=== PATIENT | female | born 1945 | race Caucasian/White ===

== ENCOUNTER 2018-11-15 12:02 | Inpatient (IN) | payer MEDICARE, BC ==
--- NOTE | 2018-11-02 15:12 | HP ---
PREOPERATIVE HISTORY AND PHYSICAL EXAMINATION: DATE OF SURGERY SCHEDULED: 11/15/18 DATE OF OFFICE VISIT: 11/02/18 ATTENDING PHYSICIAN: Dr. Asia Thakkar.* (DICTATED BY MAYLIN HODGSON) CHIEF COMPLAINT: Right knee pain. HISTORY OF PRESENT ILLNESS: Ms. Rodriguez is a 73-year-old female with right knee pain for over 6 months. She can no longer walk a block without severe pain. She has difficulty climbing stairs or with prolonged standing. She has tried antiinflammatories, steroid injections, physical therapy, ice, and compression in the past without significant relief of her symptoms. She elects to proceed with right total knee arthroplasty. PAST MEDICAL HISTORY: Significant for: 1. Hypertension. 2. Type 2 diabetes. PAST SURGICAL HISTORY: She has had a left breast biopsy which was found to be benign. CURRENT MEDICATIONS: 1. Metformin 500 mg 2 tabs p.o. b.i.d. 2. Januvia 50 mg p.o. daily. 3. Metoprolol 50 mg p.o. daily. 4. Losartan 100/12.5 mg p.o. daily. 5. Vitamin D3 2000 IU daily. 6. Multivitamin daily. ALLERGIES: No known drug allergies. She is unsure whether she is allergic to nickel metal. FAMILY HISTORY: Her mother and maternal grandparents all with history of diabetes. Father with a history of heart disease and hypertension. SOCIAL HISTORY: The patient is a retired payroll benefits administrator. She lives alone. She denies use of tobacco, alcohol, or recreational drug use. REVIEW OF SYSTEMS: The patient denies recent loss of consciousness, lightheadedness, dizziness, shortness of breath, chest pain, palpitations, gastrointestinal or genitourinary complaints. Negative for DVT or pulmonary embolism. PHYSICAL EXAMINATION GENERAL: She is a well-developed, well-nourished 73-year-old female, in no acute distress. Pleasant and cooperative. VITAL SIGNS: 65.25 inches tall, weight 167. Pulse 70, BP 128/66, temperature 97.4, respirations 14. HEENT: PERRLA. EOMI. LUNGS: Clear to auscultation without wheeze. HEART: Regular rate and rhythm. No murmur auscultated. ABDOMEN: Soft, nontender, nondistended. Normoactive bowel sounds x4 quadrants. MUSCULOSKELETAL: The right knee reveals no open lesions or excoriations on the skin. Roughly 10 degrees to 120 degrees of motion with palpable crepitus. There is valgus deformity noted. No gross instability to varus or valgus stress testing. She has full sensation distally, full circulation. Her calf is nontender and soft. She has active dorsiflexion of the right ankle. DIAGNOSTIC STUDIES/LAB DATA: Plain films of the right knee shows severe degenerative changes in both the lateral patellofemoral compartments. IMPRESSION: Advanced osteoarthritis of the right knee. PLAN: The patient has elected to proceed with right total knee arthroplasty which is scheduled with Dr. Thakkar, 11/15/18. She is scheduled to see her primary care provider tomorrow, 11/03/18 for preoperative medical clearance. She is scheduled to report to the hospital today for PAT testing, lab work, etc. She will follow up in the office in roughly 10 to 14 days postoperatively. Risks and benefits of the surgery are fully discussed by Dr. Thakkar at the office visit today and she elects to proceed. MAYLIN HODGSON [id number]/CPS #: [id number] ROHAN
[~2018-11-15 12:02] MED LIST: Buffered Lidocaine 1% SYRIN* 1 ML/SYRINGE INTRADERM ONE; Lactated Ringers 1000 ML Bag* 1,000 ML IV SCH; Tranexamic Acid 1,000 MG in NS 0.9% 50 ML* (outpatient use) IV SCH
--- OUTSIDE RECORDS SUMMARY | 2018-11-15 12:05 | XMS REPORT | Summary of Care ---
:1945 Author Organization [facility] Address [address] [place] [address] Care Team Providers Name Role Phone Nav Bradford MD Primary Care Provider Reason for Referral Diagnostic Testing (Routine) Status Reason Specialty Diagnoses / Procedures Referred By Contact Referred To Contact Closed Cardiology Diagnoses [facility]op examination [facility]TE [address] [facility] Cardiology [address] [place] [address] Reason for Visit Reason Comments Pre-Op Exam 11-15-[address] Dr Thakkar Encounter Details Date Type Department Care Team Description 11/03/2018 Office Visit [place] Internal Nav Bradford MD Preop examination (Primary Dx); Medicine [address] [facility] Essential hypertension; [address] [place] [address] Type 2 diabetes mellitus without complication, without long-term current use of insulin ([facility]) [place] [address] [phone] Allergies Active Allergy Reactions Severity Noted Date Comments Davon Inhibitors Respiratory Reaction 07/06/2008 Statins Other 09/04/2016 Refuse use documented as of this encounter (statuses as of 11/10/2018) Medications Medication Sig Dispensed Refills Start Date End Date Status Blood Glucose 1 Each by In 1 Each 0 09/05/2014 Active Monitoring Suppl Vitro route (FREESTYLE LITE) TWICE DAILY. Does not apply OV - 08/23/14 Device Dx 250.00 Lancets Does not 1 Each by Does 100 Each 3 12/30/2015 Active apply not apply MiscIndications: route DAILY. Type 2 diabetes Dx E11.9 BILL mellitus without 12/31/15 complication, without long-term current use of insulin (HCC) Calcium Take by mouth 0 Active Carb-Cholecalcife TWICE DAILY. rol (CALCIUM 600/VITAMIN D3) 600-800 MG-UNIT Oral Tab Glucose Blood In 1 Strip by In 100 Strip 3 01/11/2017 Active Vitro Vitro route StripIndications: TWICE DAILY. Type 2 diabetes Dx E11.9 mellitus without Freestyle Lite complication, BILL 12/31/15 without long-term current use of insulin (HCC) metFORMIN Take 2 Tabs by 360 Tab 3 11/25/2017 Active (GLUCOPHAGE) 500 mouth TWICE MG Oral Tab DAILY. sitagliptin Take 1 Tab by 90 Tab 3 03/24/2018 Active (JANUVIA) 100 MG mouth DAILY. Oral Tab Losartan Take 1 Tab by 90 Tab 1 10/03/2018 Active Potassium-HCTZ mouth DAILY. 100-12.5 MG Oral TabIndications: Essential hypertension metoprolol Take 1 Tab by 90 Tab 1 05/12/2018 Discontinued (LOPRESSOR) 50 MG mouth DAILY. 9 (Reorder) Oral TabIndications: Essential hypertension documented as of this encounter (statuses as of 11/10/2018) Active Problems Problem Noted Date Atypical ductal hyperplasia of breast 10/03/2018 Overview: 09/30 -Intraductal papilloma with atypical ductal hyperplasia Lipid disorder 01/11/2017 Type 2 diabetes mellitus without complication 12/30/2015 BMI 30.0-30.9,adult 04/27/2012 Overview: This patient's BMI has been calculated and is above average, and BMI management plan is completed. General patient education discussion including: obesity-related excess mortality DM (diabetes mellitus) 04/04/2012 Overview: HgA1C 12.5 03/27 Vitamin D deficiency 04/24/2009 Essential hypertension 08/15/2007 Asthma 08/15/2007 arthritis 08/15/2007 allergies 08/15/2007 documented as of this encounter (statuses as of 11/10/2018) Immunizations Name Administration Dates Next Due Influenza (IM) Preservative Free 12/23/2017, 03/14/2014 Influenza Vaccine High Dose 01/19/2017, 12/30/2015, 01/10/2015 Influenza Vaccine Whole 02/03/2000 PNEUMOCOCCAL POLYSACCHARIDE VACCINE 05/07/2016 Pneumococcal Conjugate(13 Valent) 05/01/2015 TDAP Vaccine 04/24/2009 ZOSTER (SHINGRIX) VACCINE 10/11/2018 ZOSTER (ZOSTAVAX) VACCINE 02/18/2007 dT Vaccine 02/03/2000 documented as of this encounter Social History Tobacco Use Types Packs/Day Years Used Date Never Smoker Smokeless Tobacco: Never Used Alcohol Use Drinks/Week oz/Week Comments No Sex Assigned at Date Recorded Not on file Job Start Date Occupation Industry Not on file Not on file Not on file Travel History Travel Start Travel End No recent travel history available. documented as of this encounter Last Filed Vital Signs Vital Sign Reading Time Taken Comments Blood Pressure 134/67 11/03/2018 3:11 PM EDT Pulse 82 11/03/2018 3:11 PM EDT Temperature - - Respiratory Rate - - Oxygen Saturation 99% 11/03/2018 3:11 PM EDT Inhaled Oxygen Concentration - - Weight 76.7 kg (169 lb) 11/03/2018 3:11 PM EDT Height 163.8 cm (5' 4.5") 11/03/2018 3:11 PM EDT Body Mass Index 28.56 11/03/2018 3:11 PM EDT documented in this encounter Patient Instructions Patient InstructionsNva Bradford MD - 11/03/2018 3:00 PM EDTPlan Patient is a good candidate for planned surgery- no further testing or change in medicinal regimen necessary Hold metformin / januvia before surgery / losartan/ hydrochlorothiazide Take the metoprolol before surgery with a sip Unless your surgical team tells you otherwise - - documented in this encounter Progress Notes Nav Bradford MD - 11/03/2018 3:00 PM EDT NAME:Sharon Rodriguez 1945: 1945 ENC Date: 11/03/2018 CC: Chief Complaint Patient presents with Pre-Op Exam 11-15-[address] surgery [address] Dr Thakkar Sharon Rodriguez is a 73-y.o. female preop evualuation with Dr Thakkar - Has no history of cardiopulmonary disease except for longstanding HTN and diabetes - Patient does participate in water aerobics without symptoms - Diabetes has not been well controlled but patient is losing weight and watching her carbs in anticipation of surgery - She denies any shortness of breath / chest pressure / palpitations / faint / cough - No bleeding or clotting problems No history of obsructive sleep apnea - No history of anesthetic problems - Current Outpatient Medications Medication Sig Blood Glucose Monitoring Suppl (FREESTYLE LITE) Does not apply Device 1 Each by In Vitro route TWICE DAILY. OV - 08/23/14 Dx 250.00 Calcium Carb-Cholecalciferol (CALCIUM 600/VITAMIN D3) 600-800 MG-UNIT Oral Tab Take by mouthTWICE DAILY. Glucose Blood In Vitro Strip 1 Strip by In Vitro route TWICE DAILY. Dx E11.9 Freestyle Lite BILL 12/31/15 Lancets Does not apply Misc 1 Each by Does not apply route DAILY. Dx E11.9 BILL 12/31/15 Losartan Potassium-HCTZ 100-12.5 MG Oral Tab Take 1 Tab by mouth DAILY. metFORMIN (GLUCOPHAGE) 500 MG Oral Tab Take 2 Tabs by mouth TWICE DAILY. metoprolol (LOPRESSOR) 50 MG Oral Tab Take 1 Tab by mouth DAILY. sitagliptin (JANUVIA) 100 MG Oral Tab Take 1 Tab by mouth DAILY. No current facility-administered medications for this visit. Patient Active Problem List Diagnosis Date Noted Atypical ductal hyperplasia of breast 10/03/201809/30 -Intraductal papilloma with atypical ductal hyperplasia Lipid disorder 01/11/2017 Type 2 diabetes mellitus without complication (HCC) 12/30/2015 BMI 30.0-30.9,adult 04/27/2012 This patient's BMI has been calculated and is above average, and BMI management plan is completed. General patient education discussion including: obesity-related excess mortality DM (diabetes mellitus) (HCC) 04/04/2012 HgA1C 12.5 03/27 Vitamin D deficiency 04/24/2009 Essential hypertension 08/15/2007 Asthma 08/15/2007 arthritis 08/15/2007 allergies 08/15/2007 Family History Problem Relation Age of Onset Diabetes Mother No cardiopulmonary symptoms No upper or lower GI complaints No urinary tract symptoms. No bruising/ bleeding. No neurological complaints . No insomnia.+ . Social History Tobacco Use Smoking status: Never Smoker Smokeless tobacco: Never Used Substance Use Topics Alcohol use: No Drug use: No OBJECTIVE: BP 134/67 | Pulse 82 | Ht 5' 4.5" (1.638 m) | Wt 169 lb (76.7 kg) | SpO2 99 % | BMI 28.56 kg/m . Heent neg Neck no JVD, thyromegaly or bruit Lungs Clear CV rrr Abd soft, nontender, no organomegaly Ext no edema; no lesions; pulses intact Neuro: intellect intact ; motor including gait unremarkable A/P ICD-9-CM ICD-10-CM 1. Preop examination V72.84 Z01.818 2. Essential hypertension Good control, continue present treatment 401.9 I10 3. Type 2 diabetes mellitus without complication, without long-term current use of insulin (HCC)- Losing weight - fasting blood sugar are better this month than previous with weight loss 250.00 E11.9 Patient Instructions Plan Patient is a good candidate for planned surgery- no further testing or change in medicinal regimen necessary Hold metformin / januvia before surgery / losartan/ hydrochlorothiazide Take the metoprolol before surgery with a sip Unless your surgical team tells you otherwise - - Lab Results Component Value Date NA 138 09/26/2018 K 4.1 09/26/2018 CL 103 09/26/2018 CO2 26 09/26/2018 GLUCOSE 178 (H) 09/26/2018 BUN 18 (H) 09/26/2018 CREATININE 0.8 09/26/2018 CALCIUM 9.6 09/26/2018 TP 6.9 09/26/2018 ALBUMIN 3.9 09/26/2018 AST 55 (H) 09/26/2018 ALT 56 (H) 09/26/2018 ALK 65 09/26/2018 TBILI 0.5 09/26/2018 EGFR >60 09/26/2018 Lab Results Component Value Date GLYCO 8.5 (H) 09/26/2018 GLYCO 8.3 (H) 05/16/2018 GLYCO 7.5 (H) 01/10/2018 Lab Results Component Value Date CHOL 177 09/26/2018 TRIG 236 (H) 09/26/2018 HDL 36 (L) 09/26/2018 LDL 94 09/26/2018 LDLHDLRATIO 2.6 09/26/2018 CHOLHDLRATIO 4.9 09/26/2018 preop labs and EKG elsewhere - Not reviewed by me - Assume no problems there when making above assessment - AUTHOR: Nav Bradford MD 16:02 11/03/2018 documented in this encounter Plan of Treatment Date Type Specialty Care Team Description 12/19/2018 Office Visit General Surgery Toro Mi MD [address] [place] [address] [phone] 01/03/2019 Lab Internal Medicine 01/10/2019 Office Visit Internal Medicine Nav Bradford MD [address] [place] [address] [phone] Health Maintenance Due Date Last Done Comments MEDICARE ANNUAL WELLNESS 08/24/2015 08/23/2014, 07/21/2013 VISIT INFLUENZA VACCINE (#1) 2018 12/23/2017, 01/19/2017, 12/30/2015, Additional history exists ZOSTER IMMUNIZATION SERIES 12/06/2018 10/11/2018, 02/18/2007 (3 of 3) HEMOGLOBIN A1C 12/27/2018 09/26/2018, 05/16/2018, 01/10/2018, Additional history exists FALL RISK ASSESSMENT 01/17/2019 01/17/2018, 01/17/2018 FOOT EXAM 01/17/2019 01/17/2018, 01/17/2018, 01/17/2018, Additional history exists DEPRESSION SCREENING 05/28/2019 05/27/2018 LIPID DISORDER SCREENING 09/27/2019 09/26/2018, 05/16/2018, 01/10/2018, Additional history exists MAMMOGRAM (SCREENING) 09/27/2019 09/26/2018, 09/20/2017, 03/22/2017, Additional history exists Diabetic Eye Exam 02/23/2020 02/22/2018, 02/18/2017, 02/04/2016, Additional history exists OSTEOPOROSIS SCREENING 05/07/2026 05/07/2016, 05/08/2008 COLONOSCOPY SCREENING 11/09/2028 11/09/2018, 07/23/2008 PNEUMOCOCCAL 65+YRS Completed 05/07/2016, 05/01/2015 HPV IMMUNIZATION SERIES Aged Out No longer eligible based on patient's age to complete this topic MENINGOCOCCAL VACCINE IMM Aged Out No longer eligible based on patient's age to complete this topic documented as of this encounter Goals Goal Patient Goal Associated Recent Patient-Stated? Author Type Problems Progress Blood Pressure Blood Pressure 175/75 No Suzette, < 140/90 (11/09/2018 MD Nav 9:56 AM EDT) Note: This is an individualized treatment (blood pressure) goal for Sharon Rodriguez: Displayed above (on the left) is your goal for blood pressure control. Your most recent blood pressure is also shown above, on the right. You should try to achieve blood pressures that are lower than your goal listed above (on the left). Diabetes < 7.0 Diabetes DM (diabetes 8.5 (09/26/2018 7:42 No Nav Bradford MD mellitus) AM EDT) Note: Diabetes Care Plan According to current 2014 ADA guidelines the patient A1C goal is less than 7. The patient's last A1C was Lab Results Component Value Date GLYCOHEMOGLOBIN A1C 8.3* 04/29/2015 The patient is:above goal . As your provider, it is important that I advise you regarding: your current medications and help you with any challenges you may face taking your medications as directed (ex. instructions, cost, side effects, and interactions). Important lifestyle changes:exercise, diet and glucose monitoring your clinical goals and how you can achieve success:weight reduction, exercise plan, diet management and glucose monitoring medication management: adjusted medications as appropriate patient education/self-management tools provided: Yes To successfully manage my Diabetes I will: have lab work every six months if my previous A1c was 7 or less. If my results were greater than 7, I will have lab work every three months. My goal is to control my diabetes by keeping A1c below 7.0 take medications every day as prescribed by my healthcare provider and if unable to take them I will discuss with my provider. exercise/walk 30 minutes 3 day(s) per week. If I experience chest pain, chest tightness, or shortness of breath, I will seek medical attention immediately. check feet daily. If sores or irritation are noticed, will seek medical attention. follow a low carbohydrate and low fat diet. My goal is an LDL (bad cholesterol) number less than 100 when I have my routine lab work. check blood sugar as instructed and will call my healthcare provider if the results are consistently below 70 or above 300. I will monitor for symptoms of low blood sugar (feeling faint, dizzy, lig htheaded, jittery, sweaty, or hungry), if symptoms are noticed, I will eat or drink something (glucose tabs, orange juice, candy) to help raise sugar. record my blood sugar results (including dextrose sticks). [facility] is safe and secure way for you to do this in your medical record online. try to obtain an ideal body weight. My recent weight was Weight: 176 lb ( 79.833 kg). My weight loss goal for my next office visit is 5-10 lbs . to prevent kidney problems common to people with diabetes I will complete a yearly Microalbumin to check for protein in urine. I will talk with my healthcare provider about medications to prevent diabetic renal disease. to prevent diabetic retinopathy I will see an eye doctor yearly. A yearly dilated eye exam helps prevent blindness. if currently smoking, will discuss how to quit smoking with my healthcare provider and work towards quitting. Glycohemoglobin A1c < 7.0 Diabetes 8.5 (09/26/2018 7:42 AM No Nva Bradford MD EDT) Note: This is an individualized treatment (diabetes control, HgbA1C) goal for Sharon Josué Jennifer: Displayed above is your progress towards your HgbA1C goal. Your goal is shown above (on the left); your most recent HgbA1C is shown on the right. Note that lower numbers are better. Keep immunizations current Lifestyle No Nav Bradford MD Note: This is an individualized lifestyle goal for Sharon Rodriguez: Please be sure to keep up-to-date on recommended immunizations. For example, this would include a yearly influenza vaccine. Immunization status can be seen by looking at the Health Maintenance sections of your [employer], Plan of Care, and any After Visit Summaries. Weight loss vs. 18 mo Lifestyle 12 (11/09/2018 9:56 AM EDT) No Nav Bradford MD max (lbs) >= 10 Note: This is an individualized lifestyle goal for Sharon Josué Rodriguez: Your body mass index (BMI) is more than 30. You should lose weight. A reasonable starting goal is to lose 10 pounds. Displayed above is how many pounds you have lost thus far towards your 10 pound weight loss goal. Take all prescribed medications as directed Self-management Nav Betts MD Note: This is an individualized self-management goal for Sharon Rodriguez: Please take all prescribed medications as directed. 1. Do not skip doses. If you cannot afford your medications, talk with your doctor. 2. Use a pill reminder system such as a pill box if needed. Your pharmacist can help you with this. 3. Contact your Pharmacy 5 days before your medication runs out. If you cannot take your medications for any reasons, talk with your doctor. 4. Please bring all of your medication bottles and inhalers (or a list of all your medications/inhalers) with you to every visit. Potential barriers to meeting all of your care plan goals will continue to be addressed on an ongoing basis. documented as of this encounter Results ECHOCARDIOGRAM TTE (11/08/2018 12:27 PM EDT) ECHOCARDIOGRAM TTE ECHOCARDIOGRAPHY REPORT CARDIOLOGY DEPARTMENT Patient Name: JENNIFER Moses Status: Outpatient MR Number: [id number] Gender: Female : 1945 Location: [place] Age:73 year(s) Exam Date: 11/08/2018 12:27 PM Height: 64.49 inches Weight: 167 pounds Study Performed: 2D echocardiogram, M-Mode, Doppler , Color Doppler, ECHOCARDIOGRAM TTE, Echocardiogram , 3D echocardiogram. Ordering NAV BRADFORD MD Provider: Referring NAV BRADFORD MD Provider: [employer] Supervisor: Laya Carlson Room Number Interpreting Quintin Physician Rudolph WONG BSA: 1.82 m^2 Interpreting BMI: 28.23 kg/m^2 Fellow Nurse Technical Quality: Adequate visualization Heart Rate (HR): 67bpm Blood Pressure (BP): 134/67mmHg INDICATION FOR STUDY: Preop cardiac evaluation. FINAL IMPRESSION: Mild-moderate concentric LVH with normal left atrial size and Grade I diastolic dysfunction. Normal LV systolic function with no regional wall motion abnormalities; estimated LVEF 55%. Normal right heart size with normal RV systolic function. No structurally or hemodynamically significant valvular disease. No pericardial effusion. No prior study is available for comparison. OBSERVATIONS & FINDINGS: Using 2d (3d if applicable), M-mode, Colorflow, Continuous wave doppler and Pulse wave doppler interrogation Left Ventricle Left ventricular cavity size is normal. Left ventricular wall thickness is mild-moderately increased. No evidence of LVOT obstruction. Global systolic function is normal with estimated LVEF 55%. No regional wall motion abnormalities. Diastolic doppler profile is consistent with impaired LV relaxation (mild grade I diastolic dysfunction). Left Atrium The left atrium is normal in size. Indexed LA volume is 29 ml/m2. Mitral Valve Mitral valve has mildly thickened but flexible leaflets. There is no mitral stenosis or prolapse. There is trace mitral regurgitation. Aortic Valve Aortic valve appears tricuspid with mildly thickened and calcified but flexible leaflets. There is no aortic stenosis or regurgitation. Right Ventricle The right ventricle is normal in size with preserved contractility. Right Atrium The right atrium is normal in size. Tricuspid Valve Tricuspid valve appears structurally normal with flexible leaflets. There is trivial tricuspid regurgitation. Pulmonary arterial systolic pressure cannot be accurately estimated from this study. Pulmonic Valve The pulmonic valve appears structurally normal with flexible leaflets. There is trivial pulmonic regurgitation. Pericardium / Pleura There is no pericardial effusion. Miscellaneous Visualized portions of the aorta are within normal limits. Measurements & Calculations: M-Mode / 2D Measurements Value Normal Value Normal LVIDd: 4.4 cm 3.5-5.5 AO Root: 2.6 cm 2.0-3.7 LVIDs: 2.7 cm 3.0-4.0 LA Dimension: cm 1.9-4.0 IVSd: 1.3 cm 0.7-1.1 LVOT: 1.9 cm 1.5-2.5 LVPWD: 1.4 cm 0.7-1.1 RV Diastolic Dimension: 3.28 cm EF Estimated: 55 % 50-70% Doppler Measurements & Calculations: Mitral: Aortic: Area (PHT): 2.39 cm^2 LVOT VTI: 21.8 cm Peak E-Wave: 71 cm/s Peak Velocity: 138 cm/s Peak A-Wave: 126 cm/s Peak Gradient: 7.62 mmHg Peak Gradient: 2.02 mmHg P1/2t: 92 msec Area (continuity): 2.38 cm^2 Mean Velocity: 106 cm/s Mean Gradient: 5 mmHg AV VTI: 26 cm Deceleration Time: 313 msec E/A Ratio: 0.56 Pulmonic: Peak Velocity: 119 cm/s Peak Gradient: 5.[address] ED Velocity: 94.1 cm/s Mean Velocity: 88.4 cm/s Mean Gradient: 3 mmHg Estimated RAP: 3 mmHg LA Dimension: 3.15 cm RA dimension:3.72 cm LA/Aorta: 1.21 RA area:14.2 cm^2 LA Area: 19.3 cm^2 LA Volume/Index: 52.88 ml /29m^2 Diastolic Dimension: 4.4 cm Septum Diastolic: 1.3 cm PW Diastolic: 1.4 cm Bhagat dimension:3.28 cm EF Calculated: 50.74% CO: 4.14 l/min FS: 38.64 % LVOT LV Length: 7.15 cm Peak Velocity: 100 cm/s LVOT Diameter: 1.9 cm Peak Gradient: 3 mmHg Systolic Dimension: 2.7 cm LVOT Diameter: 1.9 cm Mean Velocity: 64.9 cm/s EF Estimated: 55% Mean Gradient: 2 mmHg CI: 2.27 l/min*m^2 LVOT VTI: 21.8 cm Aorta LV EDV/LV EDV Index: 136 ml/75 m^2 Aortic Root: 2.6 cm LV ESV/LV ESV Index: 67 ml/37 m^2 Ascending Aorta: 3.2 cm LVOT Diameter: 1.9 cm Pulmonary Vein: S Velocity: 57.3 cm/s D Velocity: 35.6 cm/s A Reversal Velocity: 28.2 cm/s A Reversal Duration: 130 msec Signature Ejection Fraction 55 % CARDIOLOGY DEPARTMENT AV AREA 2.38 cm2 CARDIOLOGY DEPARTMENT RVSP mmHg CARDIOLOGY DEPARTMENT LA Volume 52.88 ml CARDIOLOGY DEPARTMENT LVEDd 4.4 cm CARDIOLOGY DEPARTMENT LVESd 2.7 cm CARDIOLOGY DEPARTMENT IVSd 1.3 cm CARDIOLOGY DEPARTMENT LVPWd 1.4 cm CARDIOLOGY DEPARTMENT ESV 67 ml CARDIOLOGY DEPARTMENT EDV 136 ml CARDIOLOGY DEPARTMENT AV Mean Gradient 5 mmHg CARDIOLOGY DEPARTMENT Specimen Performing Organization Address City/State/Zipcode Phone Number CARDIOLOGY DEPARTMENT documented in this encounter Visit Diagnoses Diagnosis Preop examination - Primary Preoperative examination, unspecified Essential hypertension Unspecified essential hypertension Type 2 diabetes mellitus without complication, without long-term current use of insulin (HCC) documented in this encounter Insurance Payer Benefit Plan / Subscriber ID Effective Dates Phone Address Type Group MEDICARE MEDICARE PART A & xxxxxxxxxxx Effective for all Medicare B dates [facility] xxxxxxxxx Effective for all [place] dates documented as of this encounter
[2018-11-15] MEDS ORDERED: ceFAZolin 2 GM in NS PREMIX(*) 2 GM/100 ML BAG IVPB ONE (12:56)
[2018-11-15] MEDS ORDERED: Midazolam* 1 MG/ML 2 ML VIAL (2 MG) ONE ×2 (14:39→16:27)
[2018-11-15] MEDS ORDERED: fentaNYL* 50 MCG/ML 2 ML VIAL (100 MCG VIAL) ONE (14:39)
[2018-11-15] MEDS ORDERED: ROPIVACAINE 5 MG/ML 30 ML BTL (0.5%) ONE ×2 (15:03→15:56)
[2018-11-15] MEDS ORDERED: Propofol* 10 MG/ML 20 ML BTL ONE (16:51)
[2018-11-15] MEDS ORDERED: Morphine INJ* 2 MG/ML 1 ML SYRINGE (TWO MG - NEW SYRINGE VERSION) IV PRN (17:40)
[2018-11-15] MEDS ORDERED: diPHENhydraMINE PO* 25 MG PO PRN (17:40)
[2018-11-15] MEDS ORDERED: Ondansetron ODT TAB* 4 MG PO PRN (17:40)
[2018-11-15] MEDS ORDERED: Cyclobenzaprine TAB* 10 MG PO PRN (17:40)
[2018-11-15] MEDS ORDERED: Ondansetron INJ* 2 MG/ML VIAL IV PRN (17:40)
[2018-11-15] MEDS ORDERED: diPHENhydraMINE IV* 50 MG/ML 1 ml VIAL (BENADRYL) IV PRN (17:40)
[2018-11-15] MEDS ORDERED: Magnesium Hydroxide LIQ* 30 ML UDC PO PRN (17:40)
[2018-11-15] MEDS ORDERED: Dextrose 50% VIAL 50 ml IV PUSH PRN (17:45)
[2018-11-15] MEDS ORDERED: HYDROmorphone INJ1* 1 MG/ML SYRINGE IV PRN (19:20)
[2018-11-15] MEDS ORDERED: Acetaminophen TAB* 325 MG PO PRN (19:20)
[2018-11-15] MEDS ORDERED: Naloxone* 0.4 MG/ML 1 ML VIAL IV PRN (19:20)
[2018-11-15] MEDS ORDERED: HYDROcodone/ACETAMIN 5-325 MG* 1 TAB PO PRN (19:20)
--- NOTE | 2018-11-15 19:35 | OP ---
Operative Report - Blank - Operative Report Date of Operation: 11/15/18 Note: HALLEY MINER 1945 Date of Surgery: 11/15/18 Asia Thakkar MD Electric Refrigerator Preparer: Whitney CARLISLE did help throughout the procedure with preparation of the knee, wound retraction, manipulation of the knee, and wound closure. Anesthesiologist: Dr. Starr Anesthesia Type: Spinal Preoperative Diagnosis: Right severe degenerative osteoarthritis of the knee with valgus deformity Postoperative Diagnosis: As above Procedure Performed: Right Total Knee Arthroplasty Tourniquet time: 40 minutes Complications: None Specimen: Bone and cartilage from the right knee joint sent to pathology. Hardware Used: Cemented Tinajero and Nephew total knee hardware was used - For the femur a size 5 narrow right legion posterior stabilized femoral component, for the tibia a size 3 right marty II tibial baseplate, for the insert a size 3-4 9 mm posterior stabilized articular polyethylene insert, and for the patella a size 32 3-peg all poly patella. Brief History/Indication: HALLEY MINER was known in clinic and had a history of severe right knee pain and swelling. She failed conservative treatment with anti-inflammatories, pain pills, intra-articular injections and physical therapy. She elected to undergo right total knee arthroplasty due to continued pain and decreased quality of life. Radiographs showed severe end stage osteoarthritis of the knee with bone on bone contact. Informed consent was obtained from the patient. She understood the risks of surgery included but were not limited to: bleeding, infection, damage to nearby structures, intraoperative fracture, nerve palsy, failure of the hardware, early loosening, knee stiffness or loss of motion, anesthesia complications, stroke, heart attack , blood clot and . She wished to proceed. Intra-Operative Findings: Intraoperatively the patient was noted to have severe loss of cartilage in all 3 compartments of the knee. She had preoperative alignment of 12 degrees valgus. Description of the Procedure: HALLEY MINER was identified in the preanesthesia unit. Her right knee was marked as the correct operative side. Informed consent was signed and placed in the chart. The patient was taken to the operating room and placed under anesthesia without complication. A contreras catheter was placed. A tourniquet was placed on the right thigh. The right lower extremity was prepped and draped in the usual sterile fashion. Preoperative time-out was made to correctly identify the patient, side and site. Appropriate intraoperative antibiotics were given within one hour of incision. Tourniquet was inflated. A midline incision was made and carried sharply down to the extensor mechanism. A new 10 blade was used to make a standard medial parapatellar arthrotomy. The patella was subluxed laterally. Electrocautery was used to dissect soft tissue off the superomedial tibia to the midsagittal plane. The knee was flexed up. The anterior horn of the lateral meniscus and the ACL were sharply incised. A drill was used to enter the distal femur. The intramedullary distal femoral cutting guide was pinned on the distal femur. The oscillating saw was used to make the distal femoral cut. The external rotation guide was pinned on the distal femur and the distal femur was sized to a size 5. The size 5 multi-cutting jig was pinned on the distal femur. The oscillating saw was used to make the appropriate 4 chamfer cuts. Next the PCL was completely released. The extramedullary tibial cutting guide was pinned on the proximal tibia and the oscillating saw was used to make the proximal tibial cut perpendicular to the mechanical axis of the tibia. The bone was carefully removed. The knee was brought out into full extension. The spacer block was placed and had excellent fit with the knee in full extension. The medial and lateral ligaments were well balanced. The flexion and extension gaps were well balanced. The knee was flexed up. Lamina construction accountant was placed both medially and laterally. Any remaining meniscus was removed with electrocautery. Curved osteotome was used to remove any posterior osteophytes. The tibial tray and drop yareli were placed and confirmed a satisfactory tibial cut. The size 5 right narrow femoral trial was impacted onto the distal femur. This trial had excellent fit and stability. The box for the posterior stabilized implant was prepared using a box cut osteotome and a reamer. Next a tibial tray trial and 9 mm insert trial was placed. The knee was taken through a range of motion and had full extension to 130 degrees of flexion. Patellofemoral tracking was satisfactory. The patella was inverted and sized to a size 32. Three peg holes were drilled through the size 32 drill guide. The trial patella was placed and the knee was taken through a range of motion. There was satisfactory patellofemoral tracking. All trials were removed. The tibia was subluxed anteriorly and sized to a size 3. The proximal tibial was prepared with a size 3 keel punch. All bony cut surfaces were irrigated with sterile saline and dried. Final implants were cemented into place starting with the tibia, followed by the femur, and last the patella. A 9 mm insert trial was placed and the knee was brought into full extension. Tourniquet was turned down and the knee was copiously irrigated with sterile saline. Electrocautery was used to obtain meticulous hemostasis. Once the cement had fully cured, the insert trial was removed. Any excess cement was removed from around the hardware and capsule. Final insert chosen was a 9 mm posterior stabilized Marty II articular insert size 3-4. Stability of the insert was checked and noted to be stable. The extensor mechanism was closed using number 1 vicryls. The rest of the incision was closed in a layered fashion using 0 and 2-0 vicryls. The skin was closed using 3-0 nylon suture. Sterile xeroform, 4x4s and webril were used to cover the incision. Davon wrap and cold pack were used to cover the dressings. The patients anesthesia was reversed without difficulty. She was taken to the PACU in stable condition. Intended weight-bearing will be as tolerated.
[2018-11-15] MEDS ORDERED: Losartan TAB* 25 MG PO ONE (19:40)
[2018-11-15] MEDS ORDERED: Hydrochlorothiazide TAB* 25 MG PO ONE (19:40)
[2018-11-15] MEDS: oxyCODONE/Acetamin 5/325 MG* TAB PO PRN (20:52)
[2018-11-15] MEDS: Insulin LISPRO* 1 UNITS UNIT SUBCUT SCH (21:05)
[2018-11-15] MEDS: Magnesium Hydroxide LIQ* 30 ML UDC PO SCH (21:06)
[2018-11-15] MEDS: Docusate CAP* 100 MG PO SCH (21:08)
[2018-11-15] MEDS: Lactated Ringers 1000 ML Bag* 1,000 ML IV SCH (21:11)
[2018-11-15] MEDS: Acetaminophen TAB* 325 MG PO SCH (21:44)
[2018-11-15] MEDS: oxyCODONE TAB* 5 MG TAB PO PRN (22:32)
[2018-11-16] MEDS: oxyCODONE/Acetamin 5/325 MG* TAB PO PRN ×4 (00:52→18:05)
[2018-11-16] MEDS: ceFAZolin 1 GM ADVAN(*) 1 GM in NS 0.9% 50 ML* 50 ML IVPB SCH ×3 (00:55→18:02)
[2018-11-16 06:15] LABS: Hematocrit 34 % (35-47); Hemoglobin 11.7 g/dL (12.0-16.0); Mean Platelet Volume 8.2 fL (7.4-10.4); Platelet Count 127 10^3/uL (150-450)
[2018-11-16 06:33] LABS: BUN/Creatinine Ratio 17.6 (8-20); Calcium 8.3 mg/dL (8.6-10.3); EGFR African American 79.8 (>60); EGFR Non-African American 65.9 (>60); Potassium 3.6 mmol/L (3.5-5.0)
[2018-11-16] MEDS: Acetaminophen TAB* 325 MG PO SCH ×3 (07:07→21:42)
[2018-11-16] MEDS: Insulin LISPRO* 1 UNITS UNIT SUBCUT SCH ×4 (08:00→20:48)
[2018-11-16] MEDS: Docusate CAP* 100 MG PO SCH ×2 (08:03→20:39)
[2018-11-16] MEDS: Vitamin THERAPEUTIC TAB PO SCH (08:03)
[2018-11-16] MEDS: Apixaban* 2.5 MG TAB PO SCH ×2 (08:03→20:39)
[2018-11-16] MEDS: Metoprolol Tartrate TAB* 50 mg PO SCH (08:03)
[2018-11-16] MEDS: oxyCODONE TAB* 5 MG TAB PO PRN ×2 (08:03→12:16)
[2018-11-16] MEDS: Magnesium Hydroxide LIQ* 30 ML UDC PO SCH ×2 (08:05→21:42)
[2018-11-16] MEDS: Lactated Ringers 1000 ML Bag* 1,000 ML IV SCH (09:51)
[2018-11-16] MEDS: Losartan TAB* 25 MG PO SCH (09:59)
[2018-11-16] MEDS: Hydrochlorothiazide TAB* 25 MG PO SCH (09:59)
--- NOTE | 2018-11-16 10:57 | CONS ---
CONSULTATION REPORT: DATE OF CONSULT: 11/15/18 ATTENDING PHYSICIAN: Dr. Thakkar. CONSULTING PHYSICIAN: Dr. Mg. PRIMARY CARE PHYSICIAN: Dr. Pat Bradford. HEALTH CARE PROXY: No healthcare proxy. REASON FOR CONSULT: Diabetes and hypertension management. CODE STATUS: Full. SOURCE OF INFORMATION: History was taken from the patient. RELIABILITY: Good. CHIEF COMPLAINT: Chronic right knee pain. HISTORY OF PRESENT ILLNESS: This is a 73-year-old female with a past medical history significant for longstanding hypertension and type 2 diabetes, presented yesterday for an elective right total knee arthroplasty with Dr. Thakkar. The patient had been treated by Dr. Thakkar as an outpatient, but failed conservative treatment and opted for surgical intervention. She states that the knee pain is well controlled, 05/22, with no other postoperative complaints other than generalized itching. Hypertension has been managed adequately as an outpatient with no recent changes in medications. Hospital Medicine has been consulted for perioperative management. Blood pressure has been elevated 180s systolically this morning, but is asymptomatic. Denies headaches, vision changes, chest pain, or shortness of breath. The patient had an echocardiogram performed on 11/08/18 which revealed mild to moderate concentric left ventricular hypertrophy with normal left atrial size and grade 1 diastolic dysfunction and ejection fraction of 55%. PAST MEDICAL HISTORY: Significant for: 1. Hypertension. 2. Diabetes type 2. 3. Arthritis. PAST SURGICAL HISTORY: Left breast biopsy which is found to be benign. MEDICATIONS: 1. Sitagliptin 100 mg p.o. at bedtime. 2. Centrum multivitamin 1 tab p.o. q.a.m. 3. Metoprolol tartrate 50 mg p.o. q.a.m. 4. Metformin ER 1000 mg p.o. b.i.d. 5. Losartan hydrochlorothiazide 100/12.5 mg one tab p.o. q.a.m. 6. Vitamin D 2000 units p.o. q.a.m. 7. Calcium carbonate vitamin D 600/800 caplet p.o. b.i.d. ALLERGIES: NICKEL. FAMILY HISTORY: Mother and maternal grandparents have a history of diabetes. Father has a history of heart disease and hypertension. SOCIAL HISTORY: Normally able to ambulate without assistance. Retired data warehouse administrator. Denies drinking, smoking, or illicit drugs. REVIEW OF SYSTEMS: The 11-point system was negative except for generalized itching. PHYSICAL EXAM: Vital Signs: 99.3, temp 108, heart rate 16, respiration 95% oxygen on 2 L and 189/71 blood pressure. Constitutional: The patient is alert. She is awake, arousable, in no acute distress. Neuro: She is alert and oriented x4. Moves all extremities equally. No facial asymmetry. Extraocular motor movements intact. HEENT: [place], moist conjunctivae. Pupils are round, equal, and reactive. Nose and ears symmetrical. Lymphatics: No cervical or supraclavicular lymphadenopathy. Cardiac: S1, S2. Heart rate regular. No murmurs, rubs, or gallops appreciated. 1+ nonpitting edema to the right lower extremity. Positive pedal pulses. Respiratory: Lungs are clear to auscultation bilaterally. No accessory muscle use on 2 L of oxygen. Abdomen: Soft and nontender. Positive bowel sounds x4. Extremities: Able to dorsi and plantar flex. Positive pedal pulses, strong and equal. Skin: The right knee dressing is clean, dry, and intact. DIAGNOSTIC STUDIES/LAB DATA: The hemoglobin is 11.7, hematocrit is 34, platelet count 127. Sodium 136, potassium 3.6, chloride 100, glucose 205, calcium 8.3. Postoperative x-ray of the right knee revealed that the replacement is in satisfactory position. ASSESSMENT AND PLAN: This is a 73 year old female with a past medical history that is significant for HTN and DM type 2, admitted on 11/15/18 for an elective right total knee replacement. No acute complaints reported today. Denies headaches, chest pain, shortness of breath. 1. Right total knee arthroplasty - On postop day 1, management is per Ortho with regard to PT/OT, bowel and pain management. Monitor HH per routine. 2. Hypertension - Systolic blood pressure in the 180s this a.m, elevated since admission but is asymptomatic. There is no acute intervention required. The patient had metoprolol this morning. We will restart the hydrochlorothiazide and losartan per home dosage this morning and to continue daily. Also we will continue with metoprolol. 3. Diabetes type 2 - Since admission, blood glucoses have been in the low 100s with the highest being this morning of 218. We will continue to hold home Januvia and metformin, but we will continue sliding scale insulin. 4. DVT prophylaxis - Per ortho, the patient will continue Apixaban 2.5 mg p.o. b.i.d. and sequential compression devices. Disposition: Inpatient, possible discharge tomorrow. Thank you very much for this consult. [id number]/[facility] #: [id number] ROHAN
--- NOTE | 2018-11-16 11:41 | PN ---
Progress Note - Progress Note Date of Service: 11/16/18 SOAP: Subjective: []Pt seen and examined at bedside. Her right knee pain is well controlled. Denies CP, irregular heartbeats, SOB, dizziness, nausea. Her BP and HR were elevated overnight, home HTN meds given this morning and values have trend towards normal. Objective: []Gen: Appears well, NAD RLE: Right knee dressing CDI, thigh soft, DF/PF intact, DP2+, sensation intact to light touch distally Calves supple and nontender without erythema, edema or palpable cords Assessment: []POD 1 sp RTK Plan: []WBAT PT/OT eliquis 2.5 mg po bid x 30 days post op Plan for outpt PT upon DC, likely DC tomorrow Vital Signs Temp 98.1 F 11/16/18 11:29 Pulse 82 11/16/18 11:29 Resp 16 11/16/18 11:29 BP 146/52 11/16/18 11:29 Pulse Ox 93 11/16/18 11:29 Intake & Output 11/15/18 11/16/18 11/16/18 18:59 06:59 18:59 Intake Total 2680 1390 Output Total 1700 Balance 980 1390 Weight 167 lb Intake: IV Fluids 1800 920 LR 1800 920 IVPB 110 ABX - CEFAZOLIN 110 Oral 880 360 Output: Dang 1500 Estimated Blood Loss 200 Laboratory Last Values Hgb 11.7 g/dL (12.0-16.0) L 11/16/18 06:02 Hct 34 % (35-47) L 11/16/18 06:02 Plt Count 127 10^3/uL (150-450) L 11/16/18 06:02 MPV 8.2 fL (7.4-10.4) 11/16/18 06:02 Sodium 136 mmol/L (135-145) 11/16/18 06:02 Potassium 3.6 mmol/L (3.5-5.0) 11/16/18 06:02 Chloride 100 mmol/L (101-111) L 11/16/18 06:02 Carbon Dioxide 29 mmol/L (22-32) 11/16/18 06:02 Anion Gap 7 mmol/L (2-11) 11/16/18 06:02 BUN 15 mg/dL (6-24) 11/16/18 06:02 Creatinine 0.85 mg/dL (0.51-0.95) 11/16/18 06:02 Est GFR ( Amer) 79.8 (>60) 11/16/18 06:02 Est GFR (Non-Af Amer) 65.9 (>60) 11/16/18 06:02 BUN/Creatinine Ratio 17.6 (8-20) 11/16/18 06:02 Glucose 205 mg/dL (70-100) H 11/16/18 06:02 POC Glucose (mg/dL) 218 mg/dL (70-100) H 11/16/18 07:14 Calcium 8.3 mg/dL (8.6-10.3) L 11/16/18 06:02
[2018-11-16] MEDS ORDERED: NS 0.9% 500 ML* 500 ML IV ONE ×2 (15:45→17:54)
[2018-11-17] MEDS: oxyCODONE/Acetamin 5/325 MG* TAB PO PRN ×3 (03:18→12:55)
[2018-11-17] MEDS: Acetaminophen TAB* 325 MG PO SCH ×2 (05:18→13:27)
[2018-11-17 06:16] LABS: Hematocrit 32 % (35-47); Hemoglobin 10.6 g/dL (12.0-16.0); Platelet Count 122 10^3/uL (150-450)
[2018-11-17] MEDS: Insulin LISPRO* 1 UNITS UNIT SUBCUT SCH ×2 (08:11→11:57)
[2018-11-17] MEDS: Magnesium Hydroxide LIQ* 30 ML UDC PO SCH (08:12)
[2018-11-17] MEDS: Metoprolol Tartrate TAB* 50 mg PO SCH (08:13)
[2018-11-17] MEDS: Docusate CAP* 100 MG PO SCH (08:13)
[2018-11-17] MEDS: Losartan TAB* 25 MG PO SCH (08:13)
[2018-11-17] MEDS: Apixaban* 2.5 MG TAB PO SCH (08:13)
[2018-11-17] MEDS: Vitamin THERAPEUTIC TAB PO SCH (08:13)
[2018-11-17] MEDS: Hydrochlorothiazide TAB* 25 MG PO SCH (08:14)
--- NOTE | 2018-11-17 09:29 | PN ---
Subjective Date of Service: 11/17/18 Interval History: Patient states she is feeling better today, slept well last night. Appetite is fair. Denies chest pain, shortness of breath, palpitations, abdominal pain, nausea, vomiting, fever or chills. Does not appear to be in acute distress. Voiding adequately this AM, output was low in the overnight. Family History: Unchanged from Admission Social History: Unchanged from Admission Past Medical History: Unchanged from Admission Objective Active Medications: Acetaminophen (Tylenol Tab*) 975 mg PO Q8HR [facility] Last Admin: 11/17/18 05:18 Dose: Not Given Apixaban (Eliquis*) 2.5 mg PO BID [facility] Last Admin: 11/17/18 08:13 Dose: 2.5 mg Bisacodyl (Dulcolax Supp*) 10 mg ME DAILY PRN PRN Reason: CONSTIPATION Cyclobenzaprine HCl (Flexeril Tab*) 10 mg PO Q6H PRN PRN Reason: SPASMS Last Admin: 11/16/18 00:51 Dose: 10 mg Dextrose (Dextrose 50% Vial 50 Ml*) 25 ml IV PUSH .FOR FS < 60 - SS PRN PRN Reason: FS < 60 Diphenhydramine HCl (Benadryl Iv*) 25 mg IV Q6H PRN PRN Reason: PRURITIS Diphenhydramine HCl (Benadryl Po*) 25 mg PO Q6H PRN PRN Reason: PRURITIS Docusate Sodium (Colace Cap*) 100 mg PO BID [facility] Last Admin: 11/17/18 08:13 Dose: 100 mg Hydrochlorothiazide (Hydrodiuril Tab*) 12.5 mg PO DAILY [facility] Last Admin: 11/17/18 08:14 Dose: 12.5 mg Lactated Ringer's (Lactated Ringers 1000 Ml Bag*) 1,000 mls @ 100 mls/hr IV PER RATE [facility] Last Admin: 11/16/18 09:51 Dose: 100 mls/hr Insulin Human Lispro (Humalog*) 0 units SUBCUT ACHS [facility]; Protocol Last Admin: 11/17/18 08:11 Dose: 4 units Lactulose (Lactulose*) 30 ml PO BID PRN PRN Reason: CONSTIPATION Losartan Potassium (Cozaar Tab*) 100 mg PO DAILY [facility] Last Admin: 11/17/18 08:13 Dose: 100 mg Magnesium Hydroxide (Milk Of Magnesia Liq*) 30 ml PO BID [facility] Last Admin: 11/17/18 08:12 Dose: Not Given Magnesium Hydroxide (Milk Of Magnesia Liq*) 30 ml PO Q6H PRN PRN Reason: CONSTIPATION Metoprolol Tartrate (Lopressor Tab*) 50 mg PO QAM [facility] Last Admin: 11/17/18 08:13 Dose: 50 mg Morphine Sulfate (Morphine Inj (Syringe))*) 2 mg IV Q4H PRN PRN Reason: Pain - Unrelieved Last Admin: 11/15/18 20:52 Dose: 2 mg Multivitamins (Theragran Tab*) 1 tab PO DAILY [facility] Last Admin: 11/17/18 08:13 Dose: 1 tab Ondansetron HCl (Zofran Inj*) 4 mg IV Q6H PRN PRN Reason: NAUSEA Ondansetron HCl (Zofran Odt Tab*) 4 mg PO Q6H PRN PRN Reason: NAUSEA Oxycodone HCl (Roxycodone Tab*) 5 mg PO Q4H PRN PRN Reason: Pain - Breakthrough Last Admin: 11/16/18 12:16 Dose: 5 mg Oxycodone/Acetaminophen (Percocet 5/325 Tab*) 1 tab PO Q4H PRN PRN Reason: PAIN - MODERATE Last Admin: 11/16/18 18:05 Dose: 1 tab Oxycodone/Acetaminophen (Percocet 5/325 Tab*) 2 tab PO Q4H PRN PRN Reason: PAIN - SEVERE Last Admin: 11/17/18 07:48 Dose: 2 tab Vital Signs - 8 hr 11/17/18 11/17/18 11/17/18 03:18 03:46 05:17 Temperature 99.6 F Pulse Rate 108 Respiratory 16 18 16 Rate Blood Pressure 181/72 (mmHg) O2 Sat by Pulse 96 Oximetry 11/17/18 11/17/18 11/17/18 07:48 07:57 08:00 Temperature 98.3 F Pulse Rate 105 Respiratory 18 12 16 Rate Blood Pressure 155/57 (mmHg) O2 Sat by Pulse 96 Oximetry 11/17/18 09:03 Temperature Pulse Rate 106 Respiratory Rate Blood Pressure (mmHg) O2 Sat by Pulse Oximetry Oxygen Devices in Use Now: None Appearance: Patient is bright, interactive. Initially had been ambulating in hallway with one assist and walker when spoken to. Eyes: No Scleral Icterus, PERRLA Ears/Nose/Mouth/Throat: NL Teeth, Lips, Gums, Clear Oropharnyx, - - Mucoud membranes dry Neck: NL Appearance and Movements; NL JVP, Trachea Midline Respiratory: Symmetrical Chest Expansion and Respiratory Effort, Clear to Auscultation Cardiovascular: NL Sounds; No Murmurs; No JVD, RRR Abdominal: NL Sounds; No Tenderness; No Distention Extremities: No Clubbing, Cyanosis, - - +1 non-pitting edema to right lower extremity Skin: - - Dressing to right knee is clean, dry and intact. Neurological: Alert and Oriented x 3, NL Sensation, NL Muscle Strength and Tone Lines/Tubes/Other Access: Clean, Dry and Intact Peripheral IV Nutrition: Taking PO's, - - Negative fluid balance of 120ml Result Diagrams: 11/17/18 06:10 11/17/18 12:25 Assess/Plan/Problems-Billing Assessment: - Patient Problems (1) Status post total right knee replacement Status: Acute Priority: High Onset Date: ~11/16/18 Code(s): Z96.651 - PRESENCE OF RIGHT ARTIFICIAL KNEE JOINT SNOMED Code(s): 8521790306079 Comment: Management per ortho with regards to pain and bowel management and PT/OT. Mobility continues to improve, ambulating with one assist and walker. Pain control is adequate. (2) Tachycardia Status: Acute Priority: High Onset Date: 11/16/18 Code(s): R00.0 - TACHYCARDIA, UNSPECIFIED SNOMED Code(s): 1827601 Comment: Persistently tachycardia in the low 100's in the overnight. Denied chest pain, shortness of breath. EKG obtained this morning which revealed nothing remarkable. In sinus rhythm. Negative fluid balance of 120mls noted, mucous membranes are dry. Ordered 1 liter NS bolus and BMP. (3) Hypertension Status: Chronic Priority: Medium Code(s): I10 - ESSENTIAL (PRIMARY) HYPERTENSION SNOMED Code(s): 59697245 Comment: Persistently elevated SBP in the 180's during the overnight accompanied by tachycardia. Patient did not report a spike in pain, stated she felt more comfortable last night than the day previously. It is my impression she is slightly dry. Continue metoprolol, HCTZ and lorsartan. (4) Diabetes type 2, controlled Status: Chronic Priority: Medium Code(s): E11.9 - TYPE 2 DIABETES MELLITUS WITHOUT COMPLICATIONS SNOMED Code(s): 17682100 Comment: Blood glucose monitoring ACHS with sliding scale lispro coverage. Home medication currently on hold but may resume upon discharge. (5) Hypokalemia with normal pH Status: Acute Code(s): E87.6 - HYPOKALEMIA SNOMED Code(s): 438194847 Comment: Labs revealed postassium of 3.1, patient denied palpitations, heart rate regular, no other acute complaints. Potassium 40mEq one time dose ordered. Patient still ok to be discharged after dose, but to continue with potassium 20mEq po daily x5 days at home. (6) DVT prophylaxis Status: Acute Code(s): Z29.9 - ENCOUNTER FOR PROPHYLACTIC MEASURES, UNSPECIFIED SNOMED Code(s): 475765588 Comment: Continue apixaban and SCD's as per ortho. (7) Full code status Status: Acute Code(s): Z78.9 - OTHER SPECIFIED HEALTH STATUS SNOMED Code(s) : 276427770 Status and Disposition: Inpatient, discharge today. Attending: Jennifer Randall
[2018-11-17] MEDS ORDERED: NS 0.9% 1000 ML** 1,000 ML IV ONE (10:04)
--- NOTE | 2018-11-17 10:23 | PN ---
Progress Note - Progress Note Date of Service: 11/17/18 SOAP: Subjective: []Pt seen at bedside. She feels well today without complaints. Pain is well controlled. Denies CP, SOB, irregular heartbeats, nausea, dizziness. Objective: []Gen: Appears well, NAD RLE: Right knee dressing changed, incision is CDI, thigh soft, DF/PF intact, DP2 +, sensation intact to light touch distally Calves supple and nontender without erythema, edema or palpable cords Assessment: []POD 2 sp RTK Plan: []WBAT PT/OT eliquis 2.5 mg po bid x 30 days post op Plan for outpt PT upon DC, likely DC today Tachycardia: EKG done and eval by medicine complete. fluid bolus ordered and anticipate DC home today Vital Signs Temp 98.3 F 11/17/18 07:57 Pulse 106 11/17/18 09:03 Resp 16 11/17/18 10:20 BP 155/57 11/17/18 07:57 Pulse Ox 96 11/17/18 07:57 Intake & Output 11/16/18 11/17/18 11/17/18 18:59 06:59 18:59 Intake Total 2175 1480 480 Output Total 100 475 600 Balance 2075 1005 -120 Intake: IV Fluids 1410 LR 920 NS (0.9%) 490 IVPB 165 ABX - CEFAZOLIN 165 Oral 600 1480 480 Output: Urine 100 475 600 Other: Estimated Void Medium Small Medium # Voids 1 1 Laboratory Last Values Hgb 10.6 g/dL (12.0-16.0) L 11/17/18 06:10 Hct 32 % (35-47) L 11/17/18 06:10 Plt Count 122 10^3/uL (150-450) L 11/17/18 06:10 MPV 8.0 fL (7.4-10.4) 11/17/18 06:10 Sodium 136 mmol/L (135-145) 11/16/18 06:02 Potassium 3.6 mmol/L (3.5-5.0) 11/16/18 06:02 Chloride 100 mmol/L (101-111) L 11/16/18 06:02 Carbon Dioxide 29 mmol/L (22-32) 11/16/18 06:02 Anion Gap 7 mmol/L (2-11) 11/16/18 06:02 BUN 15 mg/dL (6-24) 11/16/18 06:02 Creatinine 0.85 mg/dL (0.51-0.95) 11/16/18 06:02 Est GFR ( Amer) 79.8 (>60) 11/16/18 06:02 Est GFR (Non-Af Amer) 65.9 (>60) 11/16/18 06:02 BUN/Creatinine Ratio 17.6 (8-20) 11/16/18 06:02 Glucose 205 mg/dL (70-100) H 11/16/18 06:02 POC Glucose (mg/dL) 241 mg/dL (70-100) H 11/17/18 07:20 Calcium 8.3 mg/dL (8.6-10.3) L 11/16/18 06:02
--- NOTE | 2018-11-17 10:43 | DS ---
Orthopedic Discharge Summary - Discharge Summary Date of Admission:11/15/18 Date of Discharge: 11/17/18 Date of Surgery: 11/15/18 Attending Orthopedic Provider: Dr Thakkar Pre-operative Diagnosis: right knee osteoarthritis Operative Procedure: right total knee arthroplasty Disposition of Patient: home with VNS Condition of Patient: stable History: HALLEY MINER is a 73 year old F with years of increasingly severe right knee pain. Patient has failed conservative management and has elected to undergo a right total knee replacement Hospital Course: HALLEY was admitted to [facility] on 11/15/18. Patient underwent a right total knee replacement without complication followed by a brief recovery in PACU and transfer to the Short Stay Surgical Unit in stable condition. Our hospitalist service, physical therapy also participated in this patients care. Post-op day 1: patient was alert and in no acute distress. Dressing was clean, dry and intact. Operative extremity dorsiflexion and plantarflexion intact, sensation intact to light touch distally, DP2+. Post- op day two: dressing was changed, incision was clean, dry and intact. She had tachycardia into the low 100s and EKG without concerning findings of sinus rhythm with LVH, reviewed by hospitalist team and she was given a fluid bolus. Patient was deemed to be medically and orthopedically stable for discharge. Physical therapy goals were met. Home Medications Medication Instructions Recorded Confirmed Type Calcium Carbonate/Vitamin D3 1 each PO BID 11/02/18 11/15/18 History [Calcium 600-Vit D3 800 Caplet] Cholecalciferol (Vitamin D3) 2,000 unit PO QAM 11/02/18 11/15/18 History [Vitamin D3] Losartan/Hydrochlorothiazide 1 tab PO QAM 11/02/18 11/15/18 History [Losartan-Hctz 100-12.5 mg Tab] Metformin ER (NF) 1,000 mg PO BID 11/02/18 11/15/18 History Metoprolol Tartrate [Lopressor] 50 mg PO QAM 11/02/18 11/15/18 History Multivit-Min/Iron/Folic/Lutein 1 each PO QAM 11/02/18 11/15/18 History [Centrum Silver Women Tablet] Sitagliptin Phosphate [Januvia] 100 mg PO BEDTIME 11/02/18 11/15/18 History Acetaminophen TAB* [Tylenol TAB*] 975 mg PO Q8HR tab 11/17/18 Rx Apixaban* [Eliquis*] 2.5 mg PO BID #60 tab 11/17/18 Rx Docusate CAP* [Colace Cap*] 100 mg PO BID PRN #90 cap 11/17/18 Rx oxyCODONE/Acetamin 5/325 MG* 1 tab PO Q4H PRN #0 tab MDD 10 11/17/18 Rx [Percocet 5/325 TAB*] oxyCODONE/Acetamin 5/325 MG* 2 tab PO Q4H PRN #70 tab MDD 10 11/17/18 Rx [Percocet 5/325 TAB*] Discharge Instructions following Orthopedic Surgery: Activity: * Weight Bearing as tolerated * Continue physical therapy and occupational therapy exercises as shown * Home PT Wound care: * OK to shower on post-op day 3, no bathing, swimming, or submerging wound. * Use gentle soap, pat dry. Cover with gauze, JUDI wrap or tape. * Visiting home nurse to do wound checks. Call Orthopedic office for: * Increased drainage * Redness * Increased pain * Fever Go to ER with shortness of breath or chest pain. Diet: * Regular diet * Increase fluids and fiber to prevent constipation. * Continue to use stool softeners, call office if no bowel motion within 48 hours. Home nursing to check heart rate as it was elevated into the low 100's at the hospital. Please also follow BP and O2 saturation. Please follow up with PCP for continued HR above 100. Medications See Home Medication List in your packet for medications that you should take after discharge. DVT Prophylaxis: Increases bleeding tendency Eliquis Dosin.5 mg, 1 tab every 12 hours x 30 days Pain Control: Percocet Dosin/325 mg 1-2 tabs by mouth every 4-6 hours as needed for pain. Maximum of 10 tabs per day. Hold for sedation, wean off as soon as pain allows Please note that Percocet contains Tylenol (acetaminophen). Maximum daily dose of Tylenol is 4000 mg from all sources. Antibiotics are required prior to any dental work. FOLLOW UP: Follow up with [Bijan] Within 10-14 days, call for appointment Please call our office with any questions or concerns ([phone]) RX to [facility] – [place], [place]
[2018-11-17 11:33] VITALS: BP 143/54
[2018-11-17 12:51] LABS: BUN/Creatinine Ratio 15.4 (8-20); EGFR African American 73.7 (>60); EGFR Non-African American 60.9 (>60); Potassium 3.1 mmol/L (3.5-5.0)
[2018-11-17] MEDS ORDERED: Potassium Chlor TAB* 20 MEQ TAB.ER PO ONE (13:10)
[2018-11-17] MEDS ORDERED: Bisacodyl SUPP* 10 MG SUPP PR PRN (17:40)
[2018-11-17] MEDS ORDERED: Potassium Chlor TAB* 20 MEQ TAB.ER PO SCH (21:00)
== END 2018-11-17 14:45 | disposition home health service (06) | DRG 470 ==
LOC: AA 12:02 → SSU 20:17
PROVIDERS: ADMIT Orthopaedic Surgery Adult Reconstructive Orthopaedic Surgery; ATTEND Orthopaedic Surgery Adult Reconstructive Orthopaedic Surgery
PROC: 0SRC0J9 Replacement of Right Knee Joint with Synthetic Substitute, Cemented, Open Approach (ICD-10-PCS; principal; 2018-11-15 15:45)
DX: M17.11 Unilateral primary osteoarthritis, right knee (principal); I10 Essential (primary) hypertension; E11.9 Type 2 diabetes mellitus without complications; M21.061 Valgus deformity, not elsewhere classified, right knee; R00.0 Tachycardia, unspecified; M25.761 Osteophyte, right knee; G89.29 Other chronic pain; J45.909 Unspecified asthma, uncomplicated; E55.9 Vitamin D deficiency, unspecified; K21.9 Gastro-esophageal reflux disease without esophagitis; Z79.84 Long term (current) use of oral hypoglycemic drugs; Z83.3 Family history of diabetes mellitus; Z91.048 Other nonmedicinal substance allergy status; Z82.49 Family history of ischemic heart disease and other diseases of the circulatory system; E87.6 Hypokalemia
CPT/HCPCS: 36415; 80048; 85014; 85018; 85049; 88305; 88311; 93005; A9270-GY; C1776; G8978-GP-CJ; G8979-GP-CI; J0690; J2250; J2270; J2704; J2795; J3010

== ENCOUNTER 2021-08-14 11:49 | Observation (INO) ==
[~2021-08-14 11:49] MED LIST changes: +Buffered Lidocaine 1% SYRIN 1 ml INTRADERM ONE; -Buffered Lidocaine 1% SYRIN* 1 ML/SYRINGE INTRADERM ONE; -Lactated Ringers 1000 ML Bag* 1,000 ML IV SCH; +Lactated Ringers 1000 ml BAG 1,000 ML IV SCH; +Midazolam 2 mg/2 ml VIAL 1 mg/ml 2 ml VIAL (2 mg) ONE; -Tranexamic Acid 1,000 MG in NS 0.9% 50 ML* (outpatient use) IV SCH
[2021-08-14] MEDS ORDERED: ceFAZolin 2 GM in NS PREMIX 2 GM/100 ML BAG IVPB ONE (12:26)
[2021-08-14] MEDS ORDERED: fentaNYL 100 mcg/2 ml 50 MCG/ML VIAL ONE (12:30)
[2021-08-14] MEDS ORDERED: Dexamethasone IV 4 MG/ML VIAL 1 ml VIAL ONE (12:30)
[2021-08-14] MEDS ORDERED: Ondansetron 4 mg VIAL 2 MG/ML 2 ml VIAL ONE (12:30)
[2021-08-14] MEDS ORDERED: Lidocaine 2% PF 10 ML AMP ONE (12:30)
[2021-08-14 12:36] LABS: INR 1.09 (0.86-1.15)
[2021-08-14] MEDS ORDERED: Buffered Lidocaine 1% SYRIN 1 ml INTRADERM ONE (13:03)
[2021-08-14] MEDS ORDERED: Lidocaine 1% MPF 5 ML VIAL ONE (13:40)
[2021-08-14] MEDS ORDERED: ROPIVACAINE 5 MG/ML 30 ML BTL (0.5%) ONE (13:40)
[2021-08-14] MEDS ORDERED: HYDROmorphone 1 MG/1 ML SYRINGE IV PRN (15:03)
[2021-08-14] MEDS ORDERED: Naloxone 0.4 mg VIAL 0.4 mg/ml 1 ml VIAL IV PRN (15:03)
[2021-08-14] MEDS ORDERED: Propofol 10 MG/ML 20 ML BTL ONE (15:24)
[2021-08-14] MEDS ORDERED: Ondansetron 4 mg VIAL 2 MG/ML 2 ml VIAL IV PRN (15:40)
[2021-08-14] MEDS ORDERED: Lactulose 30 ml UDC PO PRN (15:40)
[2021-08-14] MEDS ORDERED: Ondansetron ODT 4 mg TAB 4 MG TAB PO PRN (15:40)
[2021-08-14] MEDS ORDERED: Magnesium Hydroxide LIQ 30 ML UDC PO PRN (15:40)
[2021-08-14] MEDS ORDERED: Morphine 2 MG/ML SYRINGE IV PRN (15:40)
[2021-08-14] MEDS ORDERED: Acetaminophen IV 1 GM/100ML 100 ML IV ONE (15:59)
[2021-08-14] MEDS ORDERED: Dextrose 50% Syringe 50 ml 25 GM/50 ML SYRINGE IV PUSH PRN (18:42)
[2021-08-14] MEDS: Lactated Ringers 1000 ml BAG 1,000 ML IV SCH (19:39)
[2021-08-14] MEDS: ceFAZolin 1 GM ADVAN 1 GM in NS 0.9% 50 ML 50 ML IVPB SCH (22:12)
[2021-08-14] MEDS: Magnesium Hydroxide LIQ 30 ML UDC PO SCH (22:15)
[2021-08-14 23:10] LABS: Glucose Confirmatory 422 mg/dL (70-100)
[2021-08-15] MEDS: Lactated Ringers 1000 ml BAG 1,000 ML IV SCH (06:06)
[2021-08-15] MEDS: ceFAZolin 1 GM ADVAN 1 GM in NS 0.9% 50 ML 50 ML IVPB SCH ×2 (06:08→12:39)
[2021-08-15 06:13] LABS: Hematocrit 35 % (35-47); Hemoglobin 11.6 g/dL (12.0-16.0); Mean Platelet Volume 9.1 fL (7.4-10.4); Platelet Count 136 10^3/uL (150-450)
[2021-08-15 06:28] LABS: Calcium 8.6 mg/dL (8.6-10.3); Potassium 4.1 mmol/L (3.5-5.0); eGFR CKD-EPI 55.1 (>60)
[2021-08-15 07:48] VITALS: BP 154/87
[2021-08-15] MEDS: Magnesium Hydroxide LIQ 30 ML UDC PO SCH (07:58)
[2021-08-15] MEDS ORDERED: Vitamin THERAPEUTIC TAB PO SCH (09:00)
[2021-08-15] MEDS ORDERED: SitaGLIPtin 100 mg TAB (NF) PO SCH (09:00)
[2021-08-15] MEDS ORDERED: CMCS: SitaGLIPtin 100 mg TAB (NF) PO ONE (11:44)
== END 2021-08-15 13:50 | disposition home or self-care (01) ==
LOC: SSU 11:49 → OR 11:49
PROVIDERS: ADMIT Orthopaedic Surgery Adult Reconstructive Orthopaedic Surgery; ATTEND Orthopaedic Surgery Adult Reconstructive Orthopaedic Surgery